=== PATIENT | female | born 1980 ===

== ENCOUNTER 2017-10-29 10:02 | Inpatient (IN) | payer MEDICAID ==
[2017-10-29 10:09] VITALS: BMI 22.7
[2017-10-29 11:02] LABS: BASO % 0.5 % (0.0-2.0); EOS # 0.1 K/uL (0.0-0.7); EOS % 1.5 % (0.0-4.0); LYMPH # 1.3 K/uL (1.0-4.3); LYMPH % 16.8 % (20.0-40.0); MEAN CELL VOLUME 73.9 fL (81.0-99.0); MEAN CORPUSCULAR HEMOGLOBIN 24.5 pg (27.0-31.0); MEAN CORPUSCULAR HGB CONC 33.1 g/dL (33.0-37.0); MEAN PLATELET VOLUME 8.4 fL (7.2-11.7); MONO # 0.4 K/uL (0.0-0.8); MONO % 5.4 % (0.0-10.0); NEUT % 75.8 % (50.0-75.0); NRBC % 0.1 % (0.0-2.0); RBC 4.92 Mil/uL (3.80-5.20); RED CELL DISTRIBUTION WIDTH 14.4 % (11.5-14.5); WHITE BLOOD COUNT 7.9 K/uL (4.8-10.8)
[2017-10-29 11:16] LABS: ALBUMIN 4.1 g/dL (3.5-5.0); ALT/SGPT 16 U/L (9-52); AST/SGOT 17 U/L (14-36); BLOOD UREA NITROGEN 9 mg/dL (7-17); CALCIUM 9.3 mg/dl (8.6-10.4); GFR AFRICAN-AMERICAN > 60; GFR NON-AFRICAN AMERICAN > 60
[2017-10-29 11:38] LABS: HCG,QUALITATIVE URINE NEGATIVE (NEGATIVE)
[2017-10-29 11:50] LABS: SQUAMOUS EPITHIAL 29 /hpf (0-5); URINE BACTERIA OCC (<OCC); URINE BILIRUBIN NEGATIVE (NEGATIVE); URINE CLARITY Hazy (Clear); URINE COLOR Amber (YELLOW); URINE GLUCOSE (UA) NORMAL (Normal); URINE LEUKOCYTE ESTERASE 3+ Leu/uL (Negative); URINE PROTEIN 1+ mg/dL (NEGATIVE)
[2017-10-29 11:52] LABS: URINE BLOOD 1+ (NEGATIVE)
--- NOTE | 2017-10-29 11:58 | C.PDOC ---
History Of Present Illness Patient is a 36 y/o female, with a Hx of bipolar disorder, schizophrenia, and substance abuse issues, who presents to the ED by a friend complaining of patient speaking gibberish. Patient has extensive psychiatric history. Patient admits to using percocet, xanax, and heroin. Denies any SI or HI. No other physical complaints at this time. Time Seen by Provider: 10/29/17 10:18 Chief Complaint (Nursing): Psychiatric Evaluation History Per: Patient, Other (friend) History/Exam Limitations: no limitations Onset/Duration Of Symptoms: Hrs Current Symptoms Are (Timing): Still Present Suicide/Self Injury Attempted (Context): None Modifying Factor(s): Narcotics Associated Symptoms: denies: Suicidal Thoughts, Suicidal Plan Recent travel outside of the [place]: No Past Medical History Reviewed: Historical Data, Nursing Documentation, Vital Signs Vital Signs: Last Vital Signs Temp 98.7 F 10/29/17 14:24 Pulse 84 10/29/17 14:24 Resp 16 10/29/17 14:24 BP 138/84 10/29/17 14:24 Pulse Ox 100 10/29/17 14:24 - Medical History PMH: Bipolar Disorder, Depression, HTN, Schizophrenia Surgical History: Cholecystectomy Family History: States: No Known Family Hx - Social History Hx Tobacco Use: Yes (heavy smoker) Hx Alcohol Use: No Hx Substance Use: Yes Review Of Systems Psych: Positive for: Other (speaking gibberish). Negative for: Suicidal ideation Physical Exam - Physical Exam Appears: Non-toxic, No Acute Distress Skin: Normal Color, Warm, Dry Head: Atraumatic, Normacephalic Oral Mucosa: Moist Chest: Symmetrical Cardiovascular: Rhythm Regular, No Murmur Respiratory: Normal Breath Sounds, No Rales, No Rhonchi, No Wheezing Gastrointestinal/Abdominal: Soft, No Tenderness ED Course And Treatment - Laboratory Results Result Diagrams: 10/29/17 10:54 10/29/17 10:54 Lab Interpretation: Abnormal (tox + opiates, cocaine, canabanoids) Urine POC: Negative O2 Sat by Pulse Oximetry: 99 Reevaluation Time: 13:40 Reassessment Condition: Improved - Physician Consult Information Outcome Of Conversation: 1330: d/w Crisis ok to admit to Detox (not psych). 1500: d/w Crisis, decide to adm to Psych and NOT detox. Admission orders changed. Medical Decision Making Medical Decision Making: Drug screen ordered. Crisis notified. underlying psych with polysubstance abuse, not SI/HI Disposition Doctor Will See Patient In The: Hospital Counseled Patient/Family Regarding: Studies Performed, Diagnosis - Disposition Disposition: HOSPITALIZED Disposition Time: 13:41 Condition: GOOD - Clinical Impression Clinical Impression: Polysubstance (including opioids) dependence with physiol dependence - Scribe Statement The provider has reviewed the documentation as recorded by the Scribnehemias Nguyen All medical record entries made by the Wendyibnehemias were at my direction and personally dictated by me. I have reviewed the chart and agree that the record accurately reflects my personal performance of the history, physical exam, medical decision making, and the department course for this patient. I have also personally directed, reviewed, and agree with the discharge instructions and disposition.
[2017-10-29 12:09] LABS: BARBITURATES, UR NEGATIVE (NEGATIVE); PHENCYCLIDINE, UR NEGATIVE (NEGATIVE)
[2017-10-29 12:27] LABS: BENZODIAZEPINES, UR POSITIVE (NEGATIVE); OPIATES, UR POSITIVE (NEGATIVE)
--- NOTE | 2017-10-29 20:45 | PCM.BM ---
<Soy Nixon - Last Filed: 10/29/17 20:43> Treatment Plan Problems - Problems identified on initial assessmt Suicidal Ideation Date Initiated: 10/29/17 Time Initiated: 15:40 Assessment reference: NA Status: Monitor Depression Date Initiated: 10/29/17 Time Initiated: 15:40 Status: Monitor Treatment assets and liabiliti Patient Assests: ADL independent, negotiates basic needs Patient Liabilities: substance abuse (Cocaine, Heroin, Marijuana ) - Milieu Protocol Maintain good personal hygiene: daily Encourage regular showers, daily Remind patient to perform daily oral care Conduct patient checks and document Observation sheet: Q15 minutes Maintain personal safety: every shift Educate patient to report safety concerns to staff, every shift Monitor environment for contraband/sharps Medication safety: Monitor for expected outcome, potential side effects: every shift, Assess barriers to learning: every shift, Assess readiness for medication education: every shift <Haylie Vallecillo - Last Filed: 10/31/17 11:23> Family Contact Family involvement: Famliy/SO not involved - Goals for Treatment Patient goals for treatment: "I want outpatient treatment." Discharge/Continuing Care - Education Needs Education Needs: Patient Medication, Patient Coping Skills, Patient Placement options, Patient Community resources - Discharge Discharge Criteria: Tolerates medication w/o severe side effects, Reduction of target symptoms [facility]charge to:: [facility] - Treatment Team Participation Was Patient/Family/SO present at Treatment Team Meeting: Yes
[2017-10-29] MEDS: (Lantus) Insulin Glargine, Recombinant SC SCH (22:24)
[2017-10-30 08:34] VITALS: RESP 20; O2SAT 100
[2017-10-30] MEDS: (Lantus) Insulin Glargine, Recombinant SC SCH (21:47)
--- NOTE | 2017-10-31 01:07 | PCM.PSYCH ---
Initial Psychiatric Evaluation - Initial Psychiatric Evaluation Type of Admission: Voluntary Legal Status: Capacity Chief Complaint (in patient's own words): PT REFUSES TO GET OUT OF BED TO BE INTERVIEWED Patient's Reaction to Hospitalization: PER NURSES; NOTES PT IS IRRITABLE History of Present Illness and Precipitating Events: THE FOLLOWING IS BASED ON NURSING NOTES AND ED AND CRISIS NOTES. PY IS 36 YEAR OLD FEMALE WHO WAS BROUGHT TO HOSPITAL BECAUSE OF BIZARRE BEHAVIOR BY A FRIEND. PT CUT HERSELF SEVERAL MONTHS AGO AND FRIEND TOLD ED THAT SHE WAS ACTING LIKE SHE DID WHEN SHE PURPOSELY CUT HERSELF SEVERAL MONTHS AGO PER ED SHE WAS SPEAKING "GIBBERISH" PT TOLD THE ADMITTING NURSE THAT SHE USES ABOUT 4 BAGS OF HEROIN A DAY, SHE USED COCAINE ALL DAY AND SHE USES MUCH SHE CAN GET, SHE HAS TRIED TO KILL HERSELF SEVERAL TIMES BY STRANGULATING HERSELF. SHE HAS TRIED THIS SEVERAL TIMES. PT LAST DID THIS SEVERAL YEARS AGO. PT NO LONGER DOES THIS SINCE SHE HAS BEEN GOING TO [facility]. HOWEVER SHE BERNABE HER HANDS WITH CIGARETTES. SHE HAS HTN AND DIABETES UDS WAS POSITIVE FOR OPIOIDS, CANNABIS COCAINE AND BENZODIAZEPINES PT HAS BEEN DIAGNOSED WITH BIPOLAR DISORDER. PT IS ALSO MOST LIKELY BORDERLINE ALSO PT WILL HAVE A METHADONE TAPER. SHE HAS NORVASC FOR HTN AND LANTUS FOR DIABETES \\. SHE HAS ZOLOFT FOR DEPRESSIONAAS WELL REMERON. FOR MOOD STABILIZATION AN INSOMNIA Current Medications: Active Medications Generic Name Dose Route Start Last Admin Trade Name Freq PRN Reason Stop Dose Admin Amlodipine Besylate 5 mg 10/30/17 10:00 10/30/17 09:41 Norvasc PO 5 mg DAILY LEROY Administration Hydroxyzine HCl 25 mg 10/29/17 18:40 10/29/17 18:47 Atarax PO 25 mg Q6H PRN Administration Anxiety Insulin Glargine 15 unit 10/29/17 22:00 10/30/17 21:47 Lantus SC Not Given HS LEROY Methadone HCl 15 mg 10/31/17 10:00 Methadone PO 10/31/17 10:01 ONCE ONE Mirtazapine 15 mg 10/29/17 22:00 10/30/17 21:43 Remeron PO 15 mg HS LEROY Administration Quetiapine Fumarate 100 mg 10/29/17 22:00 10/30/17 21:43 Seroquel PO 100 mg HS LEROY Administration Sertraline HCl 50 mg 10/30/17 10:00 10/30/17 09:41 Zoloft PO 50 mg DAILY LEROY Administration Past Psychiatric History - Past Psychiatric History Prior Professional Help: SEE HPI FOR AVAIABLE INFORMATION Pertinent Medical Hx (Current Medical&Sleep Prob, Allergies): Allergies Allergy/AdvReac Type Severity Reaction Status Date / Time No Known Allergies Allergy Verified 10/29/17 10:07 No Known Home Med 10/29/17 Review of Systems - Review of Systems Review of Systems: CANNOT ASSESS Mental Status Examination - Personal Presentation Additional comments: CANNOT ASSESS DSM 5 DX - Recommended/Plan of Treatment Treatment Recommendations and Plan of Treatment: BIPOLAR DISORDER SEROQUEL ZOLOFT AND REMERON [place] [facility] GROUP RECREATIONAL THERAPY SUPPORT PSYCHOTHERAPY OPIOID WITHDRAWAL METHADONE TAPER OPIOID USE DISORDER MODERATE [place] CBT GROUP MILIEU AND RECREATIONAL THERAPY SUPPORTIVE PSYCHOTHERAPY COCAINE USE DISORDER SEVERE [place] CBT GROUP MILIEU RECREATIONALTHERAPY SUPPORTIVE PSYCHOTHERAPY Projected ELOS: 10 DAYS Prognosis: FAIR WITH TREATMENT Discharge Plan and Discharge Criteria: REFER TO AN IKNPATIENT CO-OCCURRING REHAB - Smoking Cessation Smoking Cessation Initiated: No
[2017-10-31 05:40] VITALS: TEMP 98.3
--- NOTE | 2017-10-31 13:51 | PCM.PYCHPN ---
Psychiatric Progress Note - Psychiatric Progress Note Patient seen today, length of contact: 15 min Patient Chief Complaint: "I feel really dizzy today" Problems Identified/Issues Discussed: The pt is seen, chart reviewed, case discussed with staff. Patient admits to feeling very dizzy this morning, especially after taking her medications. Denies any falls or syncope. Patient states that she feels much more calm today and that the only thing bothering her is the dizziness. Denies any SI/HI, anxiety, depression, sadness or hopelessness at this time. The pt is compliant with medications and reports no side-effects. Symptoms improving and patient needs more time to stabilize. After care discussed, support and psychoeducation given. She does not have any specific d/c plan, but expresses her interest in a outpatient maintenance program. She has tried both methadone and suboxone maintenance in the past. She prefers suboxone at this time. Medical Problems: Diabetes mellitus Hypertension Diagnostic Results: Review DSM 5 Symptoms Update: Improving with treatment Medication Change: No Medical Record Reviewed: Yes Mental Status Examination - Cognitive Function Orientation: Person, Place, Situation, Time Memory: Intact Attention: WNL Concentration: WNL Association: [facility] Fund of Knowledge: [facility] Decription of patient's judgement and insights: Fair - Mood Mood: Depressed (Much less than before) - Affect Affect: Other (Appropriate) - Speech Speech: Soft - Formal Thought Process Formal Thought Process: No Impairment Psychotic Thoughts and Behaviors: None - Suicidal Ideation Suicidal Ideation: No - Homicidal Ideation Homicidal Ideation: No Goal/Treatment Plan - Goal/Treatment Plan Need for Continued Stay: Remain at risks for inpatient hospitalization, Discharge may exacerbated symptoms, Severe functional impairment Progress Toward Problem(s) and Goals/Treatment Plan: Continue medications Support and psychoeducation daily Attend groups and activities daily Patient will go to [facility] for follow-up care after discharge from the hospital. Patient wants Suboxone. Estimated Date of D/C: 11/02/17 - Smoking Cessation Smoking Cessation Initiated: No
[2017-10-31 16:19] VITALS: BP 140/95; PULSE 101
[2017-10-31] MEDS: (Lantus) Insulin Glargine, Recombinant SC SCH (21:28)
--- NOTE | 2017-11-01 12:12 | PCM.PYCHPN ---
Psychiatric Progress Note - Psychiatric Progress Note Patient seen today, length of contact: 15 minute Patient Chief Complaint: "I feel better" Problems Identified/Issues Discussed: The pt is seen, chart reviewed, case discussed with staff. Patient states that she feels much better today. She is requesting to go home and that she will "just stay clean" and report to the [facility]. Patient was encourage to stay until completion of detox, to reduce the likelihood of relapse. She expressed her understanding but again requested for discharge as patient already signed 48 hours notice for discharge ending on 11/02/2017. Patient also reported that she has dental appointment which she cannot miss. The pt is compliant with medications and reports no side-effects. Symptoms improving and patient needs more time to stabilize. After care discussed, support and psychoeducation given. Patient sister also called and explained about patient's dental appointment. As patient was feeling much better, refused to take her methadone 10 mg earlier even after providing education. Still patient refuses to take methadone. Medical Problems: Diabetes mellitus Hypertension Diagnostic Results: Reviewed DSM 5 Symptoms Update: Improving with treatment Medication Change: No Medical Record Reviewed: Yes Mental Status Examination - Cognitive Function Orientation: Person, Place, Situation, Time Memory: Intact Attention: WNL Concentration: WNL Association: [facility] Fund of Knowledge: [facility] Decription of patient's judgement and insights: Fair - Mood Mood: Neutral - Affect Affect: Other (Appropriate) - Speech Speech: Soft - Formal Thought Process Formal Thought Process: No Impairment Psychotic Thoughts and Behaviors: None - Suicidal Ideation Suicidal Ideation: No - Homicidal Ideation Homicidal Ideation: No Goal/Treatment Plan - Goal/Treatment Plan Need for Continued Stay: Remain at risks for inpatient hospitalization, Discharge may exacerbated symptoms, Severe functional impairment Progress Toward Problem(s) and Goals/Treatment Plan: Continue medications Support and psychoeducation daily Attend groups and activities daily Patient will go to [facility] for follow-up care after discharge from the hospital Estimated Date of D/C: 11/02/17 - Smoking Cessation Smoking Cessation Initiated: No
--- NOTE | 2017-11-02 14:20 | PCM.PYCHDC ---
Mental Status Examination - Mental Status Examination Orientation: Person, Place, Situation, Time Memory: Intact Mood: Neutral Affect: Other (Appropriate) Speech: Soft Attention: WNL Concentration: WNL Association: [facility]NL Fund of Knowledge: WNL Formal Thought Process: No Impairment Description of patient's judgement and insight: Fair Psychotic Thoughts and Behaviors: None Suicidal Ideation: No Current Homicidal Ideation?: No Discharge Summary - Discharge Note Reason for Hospitalization: Bipolar disorder Cocaine use disorder Cannabis use disorder Laboratory Data: Abnormal Lab Results 11/01/17 08:23 POC Glucose (mg/dL) 81 Consultations:: List each consultation separately and include: 1. Reason for request. 2. Findings. 3. Follow-up Summary of Hospital Course include:: 1. Description of specific treatment plan utilized for patients during their course of treatmen. 2. Summarize the time- course for resolution of acute symptoms and/or regressed behaviors. 3. Describe issues identified and worked on during hospitalization. 4. Describe medication utilized. 5. Describe medical problems identified and treated. 6. Reassessment of suicide risk Summary of Hospital Course: THE FOLLOWING IS BASED ON NURSING NOTES AND ED AND CRISIS NOTES. PY IS 36 YEAR OLD FEMALE WHO WAS BROUGHT TO HOSPITAL BECAUSE OF BIZARRE BEHAVIOR BY A FRIEND. PT CUT HERSELF SEVERAL MONTHS AGO AND FRIEND TOLD ED THAT SHE WAS ACTING LIKE SHE DID WHEN SHE PURPOSELY CUT HERSELF SEVERAL MONTHS AGO PER ED SHE WAS SPEAKING "GIBBERISH" PT TOLD THE ADMITTING NURSE THAT SHE USES ABOUT 4 BAGS OF HEROIN A DAY, SHE USED COCAINE ALL DAY AND SHE USES MUCH SHE CAN GET, SHE HAS TRIED TO KILL HERSELF SEVERAL TIMES BY STRANGULATING HERSELF. SHE HAS TRIED THIS SEVERAL TIMES. PT LAST DID THIS SEVERAL YEARS AGO. PT NO LONGER DOES THIS SINCE SHE HAS BEEN GOING TO [facility]. HOWEVER SHE BERNABE HER HANDS WITH CIGARETTES. SHE HAS HTN AND DIABETES UDS WAS POSITIVE FOR OPIOIDS, CANNABIS COCAINE AND BENZODIAZEPINES PT HAS BEEN DIAGNOSED WITH BIPOLAR DISORDER. PT IS ALSO MOST LIKELY BORDERLINE ALSO PT WILL HAVE A METHADONE TAPER. SHE HAS NORVASC FOR HTN AND LANTUS FOR DIABETES \\. SHE HAS ZOLOFT FOR DEPRESSIONAAS WELL REMERON. FOR MOOD STABILIZATION AN INSOMNIA During her stay patient was treated with Seroquel, sertraline, trazodone, amlodipine and in sleeping. Patient was also started on methadone. Patient got methadone only for 1 day and later she refused to take methadone reported having no withdrawal symptoms. Education provided but still patient refused. Patient was given other when necessary medications. Patient signed 48 of a notice for discharge ending on 11/02/2017. Patient requested for discharge for her dental work. Patient's sister also called and confirmed about patient's appointment for dental work. At the time of evaluation and discharge, patient was awake alert oriented 3, had no delusions, no auditory or visual hallucinations. Patient had no withdrawal symptoms. Patient was discharged in a stable condition. Patient will go to [facility] for follow-up care after discharge from the hospital. - Final Diagnosis (DSM 5) Condition upon Discharge: GOOD Disposition: HOME/ ROUTINE Follow-up Treatment Plan: Patient will go to [facility] for follow-up care after discharge from the hospital Prescriptions/Medication Reconciliation: amLODIPine [Norvasc] 5 mg PO DAILY #30 tab Mirtazapine [Remeron] 15 mg PO HS #30 tab QUEtiapine [Seroquel] 100 mg PO HS #30 tab Sertraline [Zoloft] 50 mg PO DAILY #30 tab - Smoking Cessation Smoking Cessation Medication prescribed: No - Antipsychotic Medications Pt discharged on 2 or more routine antipsychotic medications: No
== END 2017-11-01 14:03 | disposition home or self-care (01) | DRG 430 ==
LOC: C.ER 10:02 → C.9E 13:41 → C.7D 14:17 → C.5E 15:19
PROVIDERS: ADMIT Psychiatry & Neurology Psychiatry; ATTEND Psychiatry & Neurology Psychiatry
PROC: GZ58ZZZ Individual Psychotherapy, Cognitive-Behavioral (ICD-10-PCS; principal; 2017-10-29)
PROC: GZHZZZZ Group Psychotherapy (ICD-10-PCS; 2017-10-29)
PROC: GZ56ZZZ Individual Psychotherapy, Supportive (ICD-10-PCS; 2017-10-29)
PROC: HZ52ZZZ Individual Psychotherapy for Substance Abuse Treatment, Cognitive-Behavioral (ICD-10-PCS; 2017-10-29)
PROC: HZ2ZZZZ Detoxification Services for Substance Abuse Treatment (ICD-10-PCS; 2017-10-29)
PROC: HZ42ZZZ Group Counseling for Substance Abuse Treatment, Cognitive-Behavioral (ICD-10-PCS; 2017-10-29)
PROC: HZ59ZZZ Individual Psychotherapy for Substance Abuse Treatment, Supportive (ICD-10-PCS; 2017-10-29)
DX: F31.9 Bipolar disorder, unspecified (principal); E11.9 Type 2 diabetes mellitus without complications; F20.9 Schizophrenia, unspecified; F11.23 Opioid dependence with withdrawal; I10 Essential (primary) hypertension; F17.210 Nicotine dependence, cigarettes, uncomplicated; F12.90 Cannabis use, unspecified, uncomplicated; Z79.4 Long term (current) use of insulin

== ENCOUNTER 2018-05-30 12:46 | Inpatient (IN) | payer MEDICAID ==
[2018-05-30 12:47] VITALS: BMI 22.7
[2018-05-30 14:23] LABS: BASO % 0.6 % (0.0-2.0); EOS # 0.2 K/uL (0.0-0.7); EOS % 2.5 % (0.0-4.0); HEMOGLOBIN 11.7 g/dL (11.0-16.0); LYMPH # 2.6 K/uL (1.0-4.3); LYMPH % 43.1 % (20.0-40.0); MEAN CELL VOLUME 72.2 fL (81.0-99.0); MEAN CORPUSCULAR HEMOGLOBIN 24.4 pg (27.0-31.0); MEAN CORPUSCULAR HGB CONC 33.8 g/dL (33.0-37.0); MEAN PLATELET VOLUME 7.9 fL (7.2-11.7); MONO # 0.3 K/uL (0.0-0.8); MONO % 5.2 % (0.0-10.0); NEUT # 2.9 K/uL (1.8-7.0); NEUT % 48.6 % (50.0-75.0); RBC 4.81 Mil/uL (3.80-5.20)
[2018-05-30 14:25] LABS: HCG,QUALITATIVE URINE NEGATIVE (NEGATIVE)
[2018-05-30 14:27] LABS: SQUAMOUS EPITHIAL 5 /hpf (0-5); URINE BACTERIA OCC (<OCC); URINE BILIRUBIN NEGATIVE (NEGATIVE); URINE BLOOD NEGATIVE (NEGATIVE); URINE CLARITY Hazy (Clear); URINE COLOR Amber (YELLOW); URINE GLUCOSE (UA) NORMAL (Normal); URINE LEUKOCYTE ESTERASE TRACE Leu/uL (Negative); URINE PROTEIN 1+ mg/dL (NEGATIVE)
[2018-05-30 14:33] LABS: ALB/GLOB RATIO 1.2 (1.0-2.1); ALBUMIN 4.3 g/dL (3.5-5.0); ALT/SGPT 14 U/L (9-52); AST/SGOT 16 U/L (14-36); BLOOD UREA NITROGEN 13 mg/dL (7-17); CALCIUM 9.6 mg/dl (8.6-10.4); GFR NON-AFRICAN AMERICAN > 60
[2018-05-30 15:01] LABS: BARBITURATES, UR NEGATIVE (NEGATIVE); BENZODIAZEPINES, UR NEGATIVE (NEGATIVE); PHENCYCLIDINE, UR NEGATIVE (NEGATIVE)
[2018-05-30 15:16] LABS: OPIATES, UR POSITIVE (NEGATIVE)
--- NOTE | 2018-05-30 15:51 | C.PDOC ---
History Of Present Illness 37 year old female with a history of schizophrenia presents to the ED for evaluation of depression for the last few days. Reports suicidal ideation, hearing voices has increased, and she has no plan. Denies fever, nausea, vomiting, and any other associated symptoms. Time Seen by Provider: 05/30/18 13:23 Chief Complaint (Nursing): Psychiatric Evaluation History Per: Patient History/Exam Limitations: no limitations Onset/Duration Of Symptoms: Days Current Symptoms Are (Timing): Still Present Past Medical History Reviewed: Historical Data, Nursing Documentation, Vital Signs Vital Signs: Last Vital Signs Temp 98.7 F 05/30/18 13:12 Pulse 88 05/30/18 13:12 Resp 18 05/30/18 13:12 BP 147/103 H 05/30/18 13:12 Pulse Ox 100 05/30/18 13:12 - Medical History PMH: Bipolar Disorder, Depression, Diabetes (The patient reports being prescibed Insulin, 10 units), HTN, Schizophrenia Denies: Hepatitis, HIV, Seizures, Sexually Transmitted Disease Surgical History: Cholecystectomy - [facility] Procedures DETOXIFICATION SERVICES FOR SUBSTANCE ABUSE TREATMENT (10/29/17) GROUP CERAMICS INSTRUCTOR FOR SUBSTANCE ABUSE, COGNITIVE BEHAVIORAL (10/29/17) GROUP PSYCHOTHERAPY (10/29/17) INDIV PSYCHOTHERAPY FOR SUBSTANCE ABUSE TREATMENT, SUPPORT (10/29/17) INDIV PSYCHOTHERAPY FOR SUBSTANCE ABUSE, COGNITIV BEHAVIORAL (10/29/17) INDIVIDUAL PSYCHOTHERAPY, COGNITIVE-BEHAVIORAL (10/29/17) INDIVIDUAL PSYCHOTHERAPY, SUPPORTIVE (10/29/17) Family History: States: Unknown Family Hx - Social History Hx Tobacco Use: Yes (heavy smoker) Hx Alcohol Use: No Hx Substance Use: Yes Review Of Systems Except As Marked, All Systems Reviewed And Found Negative. Constitutional: Negative for: Fever, Chills Gastrointestinal: Negative for: Nausea, Vomiting Psych: Positive for: Depression, Suicidal ideation Physical Exam - Physical Exam Appears: Non-toxic Skin: Normal Color, Warm, Dry Head: Atraumatic, Normacephalic Eye(s): bilateral: Normal Inspection Oral Mucosa: Moist Neck: Normal ROM, Supple Chest: Symmetrical, No Deformity Cardiovascular: Rhythm Regular, No Murmur Respiratory: Normal Breath Sounds, Rales, No Rhonchi, Wheezing Gastrointestinal/Abdominal: Normal Exam, Soft Extremity: Normal ROM, No Tenderness Neurological/Psych: Oriented x3, Normal Speech, Normal Motor, Normal Sensation, Normal Reflexes Gait: Steady ED Course And Treatment - Laboratory Results Result Diagrams: 05/30/18 14:16 05/30/18 14:16 O2 Sat by Pulse Oximetry: 100 (RA) Pulse Ox Interpretation: Normal Medical Decision Making Medical Decision Making: Plan: --Blood sent. --Urine HCG --Urinalysis. Progress/Update: Patient was seen by Crisis Team and was medically cleared for psychiatric admission. 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 - Scribe Statement The provider has reviewed the documentation as recorded by the Scribe (Aranza Amado) All medical record entries made by the Scribe were at my direction and personally dictated by me. I have reviewed the chart and agree that the record accurately reflects my personal performance of the history, physical exam, medical decision making, and the department course for this patient. I have also personally directed, reviewed, and agree with the discharge instructions and disposition.
[2018-05-30] MEDS ORDERED: Aluminum Hydroxide/Magnesium Hydroxide Susp (30 mL) PO PRN (18:16)
--- NOTE | 2018-05-30 23:50 | PCM.BM ---
<Soy Nixon - Last Filed: 05/30/18 23:47> Treatment Plan Problems - Problems identified on initial assessmt Suicidal Ideation Date Initiated: 05/30/18 Time Initiated: 16:30 Assessment reference: NA Status: Active Opiates Abuse Date Initiated: 05/30/18 Time Initiated: 16:30 Assessment reference: NA Status: Active Treatment assets and liabiliti Patient Assests: ADL independent, negotiates basic needs Patient Liabilities: substance abuse (Opiates) - Milieu Protocol Maintain good personal hygiene: daily Encourage regular showers, daily Remind patient to perform daily oral care, every shift Assist patient to perform ADL's Conduct patient checks and document Observation sheet: Q15 minutes Maintain personal safety: every shift Educate patient to report safety concerns to staff, every shift Monitor environment for contraband/sharps Medication safety: Monitor for expected outcome, potential side effects: every shift, Assess barriers to learning: every shift, Assess readiness for medication education: every shift <Wilder Nevarez - Last Filed: 05/31/18 12:55> - Diagnosis (1) Depression, major, severe recurrence Status: Acute Interventions: 05/31/18 12:56 * Assess/adjust medications daily and /or as needed * See patient on an individual basis 7x/week to assess symptoms of depression * Monitor for side effects & effectiveness of medications * (2) Opioid use disorder, severe, dependence Status: Acute Interventions: 05/31/18 12:56 * Assess 7x/week regarding severity of withdrawal * Educate regarding risks, benefits, side effects and alternatives of medications * Use Motivational Interviewing for abstinence * Use CBT for relapse prevention * Medication management for withdrawal symptoms * Encourage medication assisted treatment * <Mercedes Bryant - Last Filed: 05/31/18 14:31> Family Contact Family involvement: Patient does not wish Family/SO involvement Family contact: Patient declines to allow family contact at present - Goals for Treatment Patient goals for treatment: "I want to go to a methadone clinic for treatment." Discharge/Continuing Care - Education Needs Education Needs: Patient Medication, Patient Diagnosis/Disease Process, Patient Coping Skills, Patient Placement options, Patient Community resources - Discharge Discharge Criteria: Free of Suicidal thoughts, Free of agitation, Normal sleep pattern, Ability to care for self, No longer exhibiting s/s of withdrawal, Reduction of target symptoms Discharge to:: Other - Treatment Team Participation Discussed with Family/SO: No Was Patient/Family/SO present at Treatment Team Meeting: Yes
--- NOTE | 2018-05-31 12:52 | PCM.PSYCH ---
Initial Psychiatric Evaluation - Initial Psychiatric Evaluation Type of Admission: Voluntary Legal Status: Capacity Chief Complaint (in patient's own words): "I was depressed" History of Present Illness and Precipitating Events: Patient is a 37-year-old female, single with 4 children at ages 10,15,17, and 21 (all live with grandparents). She is unemployed and homeless. Patient is here for suicidal ideation. Patient states that yesterday, she had suicidal thoughts and came to the ER by herself fearing that she would do something to herself. She reports that she had multiple suicide attempts in the past that she once walked into a traffic and got warned by the police about her risky behavior. Patient denies any current auditory or visual hallucinations. She states that she frequently gets panic attacks and becomes anxious. She reports that she goes to [facility] for her psych treatment. She denies having periods that she feels full energy. Patient reports that she uses 20 bags of heroin on IV for 5 years. The last time she used heroin was 2 days ago. She denies any other drug use. Her urine drug screen is positive for opiates. She states that she drinks socially and smokes cigarettes. Patient has tried detox and rehab for her heroin addiction before. Psych hx: Depression, anxiety, martha attempts Med hx: HTN, DM Family hx: denies Current Medications: Active Medications Generic Name Dose Route Start Last Admin Trade Name Freq PRN Reason Stop Dose Admin Al Hydrox/Mg Hydrox/Simethicone 30 ml 05/30/18 18:16 Maalox 30 Ml PO TID PRN Indigestion / Heartburn Ciprofloxacin 500 mg 05/31/18 12:00 Cipro PO 06/06/18 18:01 BID LEROY Protocol Clonidine HCl 0.1 mg 05/30/18 18:16 05/31/18 06:43 Catapres PO 0.1 mg Q8 PRN Administration COWS Score More or Equal to 5 Haloperidol 5 mg 05/30/18 18:11 Haldol PO Q4H PRN Agitation Hydroxyzine HCl 50 mg 05/30/18 18:11 Atarax PO Q6H PRN Anxiety Ibuprofen 600 mg 05/30/18 18:11 Motrin Tab PO Q6H PRN Pain, moderate (4-7) Influenza Virus Vaccine 60 mcg 06/02/18 10:00 Fluzone Quad [id number] IM 06/02/18 10:01 .ONCE ONE Loperamide HCl 2 mg 05/30/18 18:16 Imodium PO Q8 PRN Diarrhea Methadone HCl 0 mg 06/01/18 10:00 Methadone PO 06/04/18 09:59 Q24H LEROY Taper Mirtazapine 15 mg 05/30/18 22:00 05/30/18 22:52 Remeron PO Not Given HS LEROY Nicotine 1 patch 05/31/18 11:15 05/31/18 11:16 Nicoderm Cq TD 1 patch DAILY LEROY Administration Ondansetron HCl 4 mg 05/30/18 18:16 Zofran Tab PO Q8 PRN Nausea/Vomiting Pneumococcal Polyvalent Vaccine 0.5 ml 06/02/18 10:00 Pneumovax 23 Vaccine IM 06/02/18 10:01 .ONCE ONE Trazodone HCl 100 mg 05/30/18 18:11 Desyrel PO HS PRN Insomnia Past Psychiatric History - Past Psychiatric History Previous Treatment History: Inpatient Pertinent Medical Hx (Current Medical&Sleep Prob, Allergies): Allergies Allergy/AdvReac Type Severity Reaction Status Date / Time No Known Allergies Allergy Verified 05/30/18 13:15 No Known Home Med 05/30/18 Review of Systems - Neurological Neurological: UNREMARKABLE - Psychiatric Psychiatric: Abnormal Sleep Pattern, Anhedonia, Anxiety, Change in Appetite, Depression, Difficulty Concentrating, Irritability, Paranoia, Suicidal Ideation. absent: Hallucinations Mental Status Examination - Personal Presentation Personal Presentation: Looks older than stated age - Affect Affect: Constricted - Motor Activity Motor Activity: Calm - Reliability in Providing Information Reliability in Providing Information: Good - Speech Speech: Organized - Mood Mood: Depressed, Anxious - Formal Thought Process Formal Thought Process: No Impairment - Cognitive Functions Orientation: Person, Place, Situation, Time Sensorium: Alert Attention/Concentration: Attentive Estimate of Intelligence: Average Judgement: Intact, as evidence by: Insight regarding need for hospitalization Memory: Recent intact, as evidence by: Ability to recall events of the day, Remote intact, as evidenced by: Abilit to recall sig. life events - Risk Risk: Withdrawal, Diminished functioning - Strength & Assets Inventory Strength & Assets Inventory: Cooperative - Limitations Limitations: Living alone DSM 5 DX - DSM 5 DSM 5 Diagnosis: Major depression, recurrent, severe, w/o psychosis DEMIAN Opioid use severe opioid withdrawal - Recommended/Plan of Treatment Treatment Recommendations and Plan of Treatment: Lexapro for depression Methadone for opioid detox As need medications All risks, benefits and alternatives of the meds discussed, and the pt agreed and understood. Attend groups and activities Individual therapy daily Psychoeducation and support daily Encourage compliance with meds and after care Refer to outpatient program Teach healthy lifestyle methods, i.e. diet, exercise, meditation Smoking cessation and patch if needed 32 min Projected ELOS: 6 days Prognosis: good w treatment - Smoking Cessation Smoking Cessation Initiated: Yes
--- NOTE | 2018-06-01 17:54 | PCM.PYCHPN ---
Psychiatric Progress Note - Psychiatric Progress Note Patient seen today, length of contact: 15 minutes Patient Chief Complaint: I'm feeling better. Problems Identified/Issues Discussed: Patient seen, chart reviewed, case discussed with the staff. Issues related to illness and treatment were discussed with the patient and staff. Reported compliant with treatment with no adverse affects. Tolerating treatment very well. Patient reported feeling better with the treatment. Staff reported that patient is still isolative and sleeping most of the time in her room. Calm and cooperative. Awake, alert and oriented 3. No psychomotor activity, good eye contact, memory intact. Aftercare discussed with the patient. Patient wants to go either to [facility] or [facility]. Denied any delusions, auditory or visual hallucinations, suicidal ideations or homicidal ideations at the time of evaluation. Medical Problems: Hypertension Diabetes mellitus UTI Diagnostic Results: Reviewed DSM 5 Symptoms Update: Improving with treatment Medication Change: No Medical Record Reviewed: Yes Mental Status Examination - Cognitive Function Orientation: Person, Place, Situation, Time Memory: Intact Attention: WNL Concentration: WNL Association: [facility] Fund of Knowledge: [facility] Decription of patient's judgement and insights: Good - Mood Mood: Anxious - Affect Affect: Other (Appropriate) - Speech Speech: Appropriate - Formal Thought Process Formal Thought Process: No Impairment Psychotic Thoughts and Behaviors: None - Suicidal Ideation Suicidal Ideation: No - Homicidal Ideation Homicidal Ideation: No Goal/Treatment Plan - Goal/Treatment Plan Need for Continued Stay: Remain at risks for inpatient hospitalization, Discharge may exacerbated symptoms, Severe functional impairment Progress Toward Problem(s) and Goals/Treatment Plan: Patient/staff education. Supportive therapy. CBT for relapse prevention. PR for abstinence. Continue treatment as before. Patient wants to go into to [facility] or [facility] for follow-up care after discharge from the hospital. Estimated Date of D/C: 06/05/18 - Smoking Cessation Smoking Cessation Initiated: Yes
[2018-06-02] MEDS ORDERED: Pneumococcal 23-Valent Vaccine IM ONE (10:00)
[2018-06-02] MEDS ORDERED: Influenza Vaccine 60 MCG/0.5 ML SYR (3 yr & up) IM ONE (10:00)
--- NOTE | 2018-06-02 19:11 | PCM.PYCHPN ---
Psychiatric Progress Note - Psychiatric Progress Note Patient seen today, length of contact: 15 minutes Patient Chief Complaint: I'm feeling better. Problems Identified/Issues Discussed: Patient seen, chart reviewed, case discussed with the staff. Issues related to illness and treatment were discussed with the patient and staff. Reported compliant with treatment with no adverse affects. Tolerating treatment very well. Patient reported feeling better with the treatment. Staff reported that patient is still isolative and sleeping most of the time in her room. Calm and cooperative. Awake, alert and oriented 3. No psychomotor activity, good eye contact, memory intact. Aftercare discussed with the patient. Patient wants to go either to [facility] or [facility]. Denied any delusions, auditory or visual hallucinations, suicidal ideations or homicidal ideations at the time of evaluation. Medical Problems: Hypertension Diabetes mellitus UTI Diagnostic Results: Reviewed Medication Change: No Medical Record Reviewed: Yes Mental Status Examination - Cognitive Function Orientation: Person, Place, Situation, Time Memory: Intact Attention: WNL Concentration: WNL Association: [facility] Fund of Knowledge: [facility] Decription of patient's judgement and insights: Good - Mood Mood: Anxious - Affect Affect: Other (Appropriate) - Speech Speech: Appropriate - Formal Thought Process Formal Thought Process: No Impairment Psychotic Thoughts and Behaviors: None - Suicidal Ideation Suicidal Ideation: No - Homicidal Ideation Homicidal Ideation: No Goal/Treatment Plan - Goal/Treatment Plan Need for Continued Stay: Remain at risks for inpatient hospitalization, Discharge may exacerbated symptoms, Severe functional impairment Progress Toward Problem(s) and Goals/Treatment Plan: Patient/staff education. Supportive therapy. CBT for relapse prevention. MO for abstinence. Continue treatment as before. Patient wants to go into to [facility] or [facility] for follow-up care after discharge from the hospital. Estimated Date of D/C: 06/05/18
[2018-06-03 05:57] VITALS: O2SAT 99
[2018-06-03 11:00] VITALS: BP 160/80; PULSE 89; RESP 20; TEMP 97
== END 2018-06-03 13:50 | disposition home or self-care (01) | DRG 751 ==
LOC: C.ER 12:46 → C.5E 15:51
PROVIDERS: ADMIT Psychiatry & Neurology Psychiatry; ATTEND Psychiatry & Neurology Psychiatry
PROC: GZ3ZZZZ Medication Management (ICD-10-PCS; principal; 2018-05-30)
PROC: HZ2ZZZZ Detoxification Services for Substance Abuse Treatment (ICD-10-PCS; 2018-05-30)
PROC: HZ81ZZZ Medication Management for Substance Abuse Treatment, Methadone Maintenance (ICD-10-PCS; 2018-05-30)
PROC: GZHZZZZ Group Psychotherapy (ICD-10-PCS; 2018-05-30)
PROC: HZ46ZZZ Group Counseling for Substance Abuse Treatment, Psychoeducation (ICD-10-PCS; 2018-05-30)
PROC: GZ56ZZZ Individual Psychotherapy, Supportive (ICD-10-PCS; 2018-05-30)
PROC: HZ59ZZZ Individual Psychotherapy for Substance Abuse Treatment, Supportive (ICD-10-PCS; 2018-05-30)
DX: F33.2 Major depressive disorder, recurrent severe without psychotic features (principal); R45.851 Suicidal ideations; E11.9 Type 2 diabetes mellitus without complications; F11.23 Opioid dependence with withdrawal; N39.0 Urinary tract infection, site not specified; F17.210 Nicotine dependence, cigarettes, uncomplicated; Z91.5 Personal history of self-harm; I10 Essential (primary) hypertension; F20.9 Schizophrenia, unspecified; F41.0 Panic disorder [episodic paroxysmal anxiety]; Z59.0 Homelessness